=== PATIENT | female | born 1960 | race Two or more races ===

== ENCOUNTER 2020-10-12 17:21 | Emergency (ER) | payer BC ==
[~2020-10-12] VITALS: Ht 157.5 cm; Wt 68.4 kg
[2020-10-12] MEDS: HYDROcodone/APAP 5/325MG 1 TAB TABLET PO ONE (17:58)
--- NOTE | 2020-10-12 17:59 | PHYS DOC ---
Past History Past Medical History: COPD, Diverticulitis, GERD, IBS (CARLENE RICHARDSON APRN) Past Surgical History: Hysterectomy (CARLENE RICHARDSON APRN) Alcohol Use: Occasionally (CARLENE RICHARDSON APRN) General Adult EDM: Chief Complaint: UPPER EXTREMITY PAIN HPI: HPI: Patient is a 59-year-old female presents with left arm pain after falling getting out of the shower. Patient denies taking anything for pain prior to arrival. Patient is unable to flex wrist without pain. Patient has history of COPD, GERD. (CARLENE RICHARDSON APRN) Review of Systems: Review of Systems: Constitutional: Denies fever or chills Eyes: Denies change in visual acuity HENT: Denies nasal congestion or sore throat Respiratory: Denies cough or shortness of breath Cardiovascular: Denies chest pain or edema GI: Denies abdominal pain, nausea, vomiting, bloody stools or diarrhea : Denies dysuria Musculoskeletal: Reports left forearm pain Integument: Denies rash Neurologic: Denies headache, focal weakness or sensory changes Endocrine: Denies polyuria or polydipsia Lymphatic: Denies swollen glands Psychiatric: Denies depression or anxiety (CARLENE RICHARDSON APRN) Current Medications: Current Meds: Current Medications Medications (Trade) Dose Ordered Sig/Precious Start Time Stop Time Status Last Admin Dose Admin Acetaminophen/ Hydrocodone Bitart (Lortab 5/325) 1 tab 1X ONCE 10/12/20 18:30 10/12/20 18:31 (CARLENE RICHARDSON APRN) Allergies: Allergies: Allergies Coded Allergies Type Severity Reaction Last Updated Verified guaifenesin Allergy Severe 10/12/20 Yes (CARLENE RICHARDSON APRN) Physical Exam: PE: Constitutional: Well developed, well nourished, no acute distress, non-toxic appearance. [] HENT: Normocephalic, atraumatic, bilateral external ears normal, oropharynx moist, no oral exudates, nose normal. [] Eyes: PERRLA, EOMI, conjunctiva normal, no discharge. [] Neck: Normal range of motion, no tenderness, supple, no stridor. [] Cardiovascular:Heart rate regular rhythm, no murmur [] Lungs & Thorax: Bilateral breath sounds clear to auscultation [] Abdomen: Bowel sounds normal, soft, no tenderness, no masses, no pulsatile masses. [] Skin: Warm, dry, no erythema, no rash. [] Back: No tenderness, no CVA tenderness. [] Extremities: Left forearm tenderness, unable to flex wrist, some swelling noted Neurologic: Alert and oriented X 3, normal motor function, normal sensory function, no focal deficits noted. [] Psychologic: Affect normal, judgement normal, mood normal. [] (CARLENE RICHARDSON APRN) Current Patient Data: Vital Signs: Vital Signs Date Time Temp Pulse Resp B/P (MAP) Pulse Ox O2 Delivery O2 Flow Rate FiO2 10/12/20 17:21 97.5 55 16 111/87 (95) 96 Room Air (CARLENE RICHARDSON APRN) EKG: EKG: [] (CARLENE RICHARDSON APRN) Radiology/Procedures: Radiology/Procedures: []Two-view left forearm HISTORY: Pain status post fall AP lateral views There is a transverse fracture of the distal radius with mild lateral displacement and mild posterior displacement. The remaining visualized osseous structures appear normal. IMPRESSION: Acute chronic fracture of the distal radius. Electronically signed by: Bob Contreras III, MD (10/12/2020 6:09 PM) [facility] (CARLENE RICHARDSON APRN) Heart Score: C/O Chest Pain: No Risk Factors: Risk Factors: DM, Current or recent (<one month) smoker, HTN, HLP, family history of CAD, obesity. Risk Scores: Score 0 - 3: 2.5% MACE over next 6 weeks - Discharge Home Score 4 - 6: 20.3% MACE over next 6 weeks - Admit for Clinical Observation Score 7 - 10: 72.7% MACE over next 6 weeks - Early Invasive Strategies (CARLENE RICHARDSON APRN) Course & Med Decision Making: Course & Med Decision Making Pertinent Labs and Imaging studies reviewed. (See chart for details) []59-year-old female presents with left arm pain after a fall getting out of the shower. Forearm x-ray ordered to rule out fracture. Patient given hydrocodone for pain. X-rays positive for fracture of the distal radius. Given a Percocet in the emergency room prior to discharge. Patient sent home with hydrocodone for pain. Patient can also take ibuprofen. Rice instructions given. Patient given orthopedics number to follow-up on Tuesday. (CARLENE RICHARDSON APRN) [place] Disclaimer: [place] Disclaimer: This electronic medical record was generated, in whole or in part, using a voice recognition dictation system. (CARLENE RICHARDSON APRN) Departure Departure: Impression: Primary Impression: Left radial fracture Qualified Codes: S52.502A - Unspecified fracture of the lower end of left radius, initial encounter for closed fracture Disposition: HOME / SELF CARE / HOMELESS Condition: STABLE Referrals: PCP,UNKNOWN (PCP) Patient Instructions: Radial Fracture Additional Instructions: Please follow up with [facility] , [address] [address] Scripts Hydrocodone Bit/Acetaminophen (HYDROCODONE-APAP 5-325 ) 1 Each Tablet 1 TAB PO PRN Q6HRS PRN for PAIN for 3 Days, #12 TAB 0 Refills Prov: CARLENE RICHARDSON APRN 10/12/20 Attending Signature Attending Signature I have participated in the care of this patient and I have reviewed and agree with all pertinent clinical information above including history, exam, and recommendations. (ELIZABETH WOODALL MD) Attending Signature Attending Signature I have participated in the care of this patient and I have reviewed and agree with all pertinent clinical information above including history, exam, and recommendations. (ELIZABETH WOODALL MD) CARLENE RICHARDSON APRN October 12, 2020 17:59 ELIZABETH WOODALL MD Oct 14, 2020 20:25
--- NOTE | 2020-10-12 18:12 | RAD ---
Two-view left forearm HISTORY: Pain status post fall AP lateral views There is a transverse fracture of the distal radius with mild lateral displacement and mild posterior displacement. The remaining visualized osseous structures appear normal. IMPRESSION: Acute chronic fracture of the distal radius. Electronically signed by: Bob Contreras III, MD (10/12/2020 6:09 PM) [facility]
[2020-10-12] MEDS ORDERED: HYDR-2155 PO (18:56)
[2020-10-12] MEDS: oxyCODONE/APAP 7.5/325 1 TAB TABLET PO ONE (19:33)
[2020-10-12 19:36] VITALS: BP 156/92
== END 2020-10-12 19:47 | disposition home or self-care (01) ==
LOC: ER 17:21
DX: S52.502A Unspecified fracture of the lower end of left radius, initial encounter for closed fracture (principal); J44.9 Chronic obstructive pulmonary disease, unspecified; K58.9 Irritable bowel syndrome, unspecified; Z88.8 Allergy status to other drugs, medicaments and biological substances; W18.2XXA Fall in (into) shower or empty bathtub, initial encounter; Y93.89 Activity, other specified; Y92.89 Other specified places as the place of occurrence of the external cause; Y99.8 Other external cause status
CPT/HCPCS: 29125; 73090; 99283